=== PATIENT | male | born 1965 | race Caucasian/White ===

== ENCOUNTER 2021-06-24 10:53 | Emergency (ER) | payer BC ==
[2021-06-24 11:10] VITALS: BP 164/89
[2021-06-24] MEDS: MELOXICAM 7.5 MG TABLET PO STA (11:31)
--- NOTE | 2021-06-24 11:32 | XRAY Report ---
PROCEDURE: Elbow 3 View RT INDICATIONS: Trauma TECHNIQUE: 3 views of the elbow were acquired. COMPARISON: None FINDINGS: Bones: No fractures or dislocations. No suspicious bony lesions. Soft tissues: No elbow joint effusion. No suspicious soft tissue calcifications. IMPRESSION: No acute fracture. No osseous lesion. If symptoms and/or clinical suspicion for pathology continue, f urther assessment with repeat plain films, or advanced imaging (e.g., CT, MRI, or bone scan) is recom mended for further assessment. Reviewed by: Fredrick Jin MD on 06/24/2021 11:31 AM [facility] Approved by: Fredrick Jin MD on 06/24/2021 11:31 AM [facility] Station ID: [id number]
--- NOTE | 2021-06-24 11:57 | ED Physician Documentation ---
PD HPI UPPER EXT INJURY - Stated complaint Stated Complaint: R ELBOW PX - Chief complaint Chief Complaint: Ext Problem - History obtained from History obtained from: Patient - History of Present Illness Location: Right, Elbow Type of injury: Blunt / blow Where injury occurred: Home Timing - onset: Last night, How many days ago (1) Timing - duration: Days (1) Timing - details: Abrupt onset Pain level max: 7 Pain level now: 5 Worsened by: Moving, Palpating Associated symptoms: Swelling Contributing factors: No: Anticoagulated, Prior ortho surgery, Prosthetic joint, Work related Similar symptoms before: Has not had sx before - Additonal information Additional information: 55-year-old male presents with right elbow pain. He states he hit it on a door last night and is swollen and painful today. Worse with movement, better with rest. No numbness or tingling. Patient is not on any medications at home. Review of Systems Constitutional: denies: Fever, Chills Respiratory: denies: Cough GI: denies: Nausea, Vomiting, Diarrhea Skin: denies: Rash Musculoskeletal: denies: Neck pain, Back pain Neurologic: denies: Headache PD PAST MEDICAL HISTORY - Past Medical History Past Medical History: No - Past Surgical History Past Surgical History: No - Present Medications Home Medications: Ambulatory Orders Medication Instructions Recorded Confirmed HYDROcod/ACETAM 5/325 [Vardaman 5/325] 1 - 2 ea PO Q6H PRN #14 tablet 06/24/21 Meloxicam [Mobic] 15 mg PO DAILY PRN #20 tablet 06/24/21 - Allergies Allergies/Adverse Reactions: Allergies Allergy/AdvReac Type Severity Reaction Status Date / Time No Known Drug Allergies Allergy Verified 06/24/21 11:10 - Living Situation Living Situation: reports: With family Living Arrangement: reports: At home - Social History Does the pt have substance abuse?: No PD ED PE NORMAL - Vitals Vital signs reviewed: Yes - General General: Alert and oriented X 3, No acute distress - HEENT HEENT: Moist mucous membranes - Derm Derm: Warm and dry - Extremities Extremities: Other (R elbow - There is swelling over the distal aspect of the ulna. Full range of motion. Supination and pronation intact. Neurovascular intact. Otherwise normal examination of the right upper extremity) - Neuro Neuro: Alert and oriented X 3 Results - Vitals Vitals: Vital Signs - 24 hr 06/24/21 11:05 Temperature 36.9 C Heart Rate 93 Respiratory 17 Rate Blood Pressure 164/89 H O2 Saturation 97 Oxygen O2 Source Room air - Rads (name of study) Right elbow x-ray Radiology: Final report received, EMP read contemporaneously, See rad report (No acute osseous abnormality) PD MEDICAL DECISION MAKING - ED course Complexity details: reviewed results, considered differential, d/w patient ED course: 55-year-old male with right elbow pain. No acute findings on x-ray. We will place on pain medication for home. He has ice at home as well as heating pads. Using the arm well here. Patient counseled regarding signs and symptoms for which I believe and urgent re-evaluation would be necessary. Patient with good understanding of and agreement to plan and is comfortable going home at this time This document was made in part using voice recognition software. While efforts are made to proofread this document, sound alike and grammatical errors may occur. I am prescribing a short course of short-acting opioid pain medication for this patient. I have reviewed the patients MEDICAL EDITOR and no concerning findings were noted. I have discussed that the opioids are for short term therapy only, and will not be refilled from the ED. Departure - Departure Disposition: 01 Home, Self Care Clinical Impression: Hematoma Condition: Good Instructions: ED Hematoma Follow-Up: your,doctor in 1 week if not better [Other] Prescriptions: Meloxicam [Mobic] 15 mg PO DAILY PRN #20 tablet PRN Reason: pain HYDROcod/ACETAM 5/325 [Vardaman 5/325] 1 - 2 ea PO Q6H PRN #14 tablet PRN Reason: Pain Comments: Your prescriptions were sent to the [facility] pharmacy. Please follow-up with your doctor for further care. Ice and compression will likely help the hematoma. Your x-ray does not show any fractures today. I am prescribing a short course of narcotic pain medication for you. These are potentially dangerous and addictive medications that should be used carefully. These medications may constipate you. Take an uwbr-fxg-vyxtmet stool softener (docusate) twice daily with plenty of water while taking these medications. If you go 24 hours without a bowel movement, take [id number] miralax, per package instructions. Do not drink or drive while taking these medications. If you received narcotic or sedating medications while in the emergency department, do not drive for 24 hours. Store this medication in a safe, secure place and out of reach of children. It is a violation of federal law to give or sell this medication to another person or to use in a manner other than prescribed. The ED will not refill narcotic prescriptions, including prescriptions lost or stolen. To dispose of unwanted medications: 1. [facility] at [address] in [place] has a medication drop box. They accept prescription medications (in pill form) Wednesday through Wednesday 9:00 a.m. to 5:00 p.m. 2. [facility] [employer] accepts prescription medications (in pill form only) for disposal year round. Call for more information. 3. Contact the [facility] for the next [facility] sponsored prescription drug collection event. , [phone], or [phone]; Discharge Date/Time: 06/24/21 12:02
== END 2021-06-24 12:02 | disposition home or self-care (01) ==
LOC: ED 10:53
DX: S50.01XA Contusion of right elbow, initial encounter (principal); W22.8XXA Striking against or struck by other objects, initial encounter; Y92.009 Unspecified place in unspecified non-institutional (private) residence as the place of occurrence of the external cause
CPT/HCPCS: 73080; 99283; A9270